=== PATIENT | male | born 1990 | race Caucasian/White ===

== ENCOUNTER 2017-01-24 02:22 | Emergency (ER) | payer SELFPAY ==
--- NOTE | ~2017-01-24 | ER ---
PATIENT'S NAME: NADIR CH [facility] AGE: 26 Y [address] ROOM: [place] [address] LOCATION: [facility] ADMIT DATE: 01/24/2017 ER/Outpatient Report DISCHARGE DATE: 01/24/2017 FAMILY PHYSICIAN: PHYSICIAN, NO ATTENDING PHYSICIAN: Alona Jiang Time of Arrival: 0222 hours. Time of Evaluation: 0226 hours. CHIEF COMPLAINT: Back pain. HISTORY OF PRESENT ILLNESS: The patient is a 26-year-old male, who presents to the emergency department today with a chief complaint of back pain. He reports this started 1 day prior to arrival. He reports all of a sudden, he had sharp back pain. He has had nausea and vomiting x1 due to the pain. He reports some urinary frequency because he feels like he . Denies any urgency. No painful urination. No burning with urination. No blood in the stool or blood in his vomit. Denies any loss of bowel or bladder. No saddle anesthesia. His pain is currently 10/10 in severity. It is sharp. It is worse with movement. PAST MEDICAL HISTORY: None. PAST SURGICAL HISTORY: Tonsils and adenoids, right foot and ankle surgery. SOCIAL HISTORY: The patient denies any tobacco, alcohol, or illicit drug use. ALLERGIES: TO AMOXICILLIN AND TORADOL. MEDICATIONS: None. PRIMARY CARE DOCTOR: None. REVIEW OF SYSTEMS: All systems are reviewed by myself and negative with the exception of those discussed in the HPI and past medical history. PATIENT'S NAME: NADIR CH [facility] AGE: 26 Y [address] ROOM: [place] [address] LOCATION: [facility] ADMIT DATE: 01/24/2017 ER/Outpatient Report DISCHARGE DATE: 01/24/2017 FAMILY PHYSICIAN: PHYSICIAN, NO ATTENDING PHYSICIAN: Alona Jiang PHYSICAL EXAMINATION: VITAL SIGNS: Weight 131 kg, blood pressure 131/67, pulse 98, respiratory rate 18, temperature 99.2, oxygen saturation 98% on room air. GENERAL: The patient is a 26-year-old male, who appears stated age, in mild to moderate acute distress secondary to back pain. HEENT: Normocephalic, atraumatic. Pupils are equal, round, and reactive to light. Oropharynx is clear. NECK: Supple. There is no nuchal rigidity. CARDIOVASCULAR: Regular rate and rhythm. No murmurs, rubs, or gallops. LUNGS: Clear to auscultation bilaterally. No wheezes, rales, or rhonchi. ABDOMEN: Soft, nontender, and nondistended. No rebound, rigidity, or guarding. MUSCULOSKELETAL: The patient has tenderness to palpation of left lumbar paraspinal musculature. He is able to ambulate with antalgic gait. 2/4 reflexes, bilateral patella and Achilles. SKIN: Warm and dry. There are no rashes or lesions noted. LABORATORY DATA AND X-RAYS: None. IMPRESSION: 1. Acute lumbar back pain, suspect musculoskeletal. 2. Initial visit. EMERGENCY DEPARTMENT COURSE: The patient was brought back to the examination room. Seen and evaluated by myself. I have offered the patient Toradol IM and Valium IM and prednisone p.o. The patient does report he has an allergy to Toradol, which hurts when he gets the injection, so the patient refuses. He refuses Valium because he wants to drive. We did give him 60 mg of prednisone p.o. I have written a prescription for Flexeril and prednisone for home. Discussed rest, ice, as well as alternating heat. I have discussed followup with the primary care doctor in 2 days for re- evaluation. I have discussed return to care instructions including any worsening symptoms or any other concerns, to return to the emergency department as soon as possible. The patient is agreeable without further questions at this time. DISPOSITION: The patient discharged home in good condition. ALONA JIANG DO PATIENT'S NAME: FRIEND, NADIR Sandoval [facility] AGE: 26 Y [address] ROOM: [place], [place] [address] LOCATION: [facility] ADMIT DATE: 01/24/2017 ER/Outpatient Report DISCHARGE DATE: 01/24/2017 FAMILY PHYSICIAN: PHYSICIAN, NO ATTENDING PHYSICIAN: Alona Jiang/radha /[id number] d: 01/24/17 0341 t: 01/25/17 1353, OUTPATIENT REPORT
== END 2017-01-24 02:48 | disposition disaster alternative care site (69) ==
LOC: GMED 02:22
DX: M54.5 Low back pain (principal); Z90.89 Acquired absence of other organs; Z98.890 Other specified postprocedural states; Z88.6 Allergy status to analgesic agent; Z88.1 Allergy status to other antibiotic agents
CPT/HCPCS: J1885; J7512